=== PATIENT | male | born 1980 | race Two or more races ===

== ENCOUNTER 2018-03-06 22:13 | Emergency (ER) | payer MEDICAID ==
[~2018-03-06] VITALS: Ht 165.1 cm; Wt 70.3 kg
--- NOTE | 2018-03-06 22:30 | NUR ---
MD AT BEDSIDE FOR EVALUATION
--- NOTE | 2018-03-06 22:35 | NUR ---
PT BIBFRIEND. PT C/O FACIAL SWELLING AFTER "POPPING BUBBLE IN MOUTH". PT IS AAOX4. NO ACUTE DISTRESS NOTED. RESPIRATIONS EVEN AND UNLABORED. SKIN WARM AND INTACT. WAITING MD EVALUATION
[2018-03-06] MEDS ORDERED: KETOROLAC TROMETHAMINE INJ 30 MG/ML VIAL ONE (22:45)
[2018-03-06] MEDS ORDERED: methylPREDNISolone SOD SUCC 125 MG/2ML VIAL ONE (22:46)
[2018-03-06 22:57] LABS: BASOPHILS % (AUTO) 0.6 % (0.0-2.0); EOSINOPHILS % (AUTO) 0.9 % (0.0-6.0); HEMATOCRIT 44 % (39-51); HEMOGLOBIN 14.4 g/dL (13.5-17.5); LYMPHOCYTES # (AUTO) 1.3 /CMM (0.8-4.8); LYMPHOCYTES % (AUTO) 19.5 % (20.0-44.0); MEAN CORPUSCULAR HEMOGLOBIN 30 PG (26.0-33.0); MEAN CORPUSCULAR HGB CONC 33 g/dl (31.0-36.0); MEAN CORPUSCULAR VOLUME 90 fL (80-96); MONOCYTES # (AUTO) 0.5 /CMM (0.1-1.30); NEUTROPHILS # (AUTO) 4.8 /CMM (1.8-8.9); PLATELET COUNT (AUTO) 168 /CMM (150-450); RDW COEFFICIENT OF VARIATION 12.8 (11.5-15.0); RED BLOOD CELL COUNT(AUTO) 4.89 MIL/uL (4.5-6.0); WHITE BLOOD COUNT (AUTO) 6.7 K/uL (4.3-11.0)
[2018-03-06] MEDS ORDERED: CLINDAMYCIN 900 MG/6 ML VIAL ONE (22:57)
[2018-03-06 23:05] LABS: CALCIUM, SERUM 8.7 mg/dL (8.5-10.1); CREATININE 0.9 mg/dL (0.6-1.3); POTASSIUM 3.5 mmol/L (3.5-5.1)
[2018-03-06] MEDS: KETOROLAC TROMETHAMINE INJ 30 MG/ML VIAL IV ONE (23:13)
[2018-03-06] MEDS: CLINDAMYCIN 600 MG in IV D5W 100 ML IV ONE (23:13)
[2018-03-06] MEDS: methylPREDNISolone SOD SUCC 125 MG/2ML VIAL IV ONE (23:13)
[2018-03-06] MEDS ORDERED: IOHEXOL-300 100 ML VIAL IV ONE (23:14)
[2018-03-06] MEDS ORDERED: SODIUM BICARBONATE 5 ML VIAL ONE (23:14)
[2018-03-06 23:17] LABS: INR 1.03 (0.87-1.13)
--- NOTE | 2018-03-06 23:19 | NUR ---
PT BROUGHT BY RADIOLOGY FOR CT
--- NOTE | 2018-03-06 23:30 | NUR ---
PT RETURNED FROM CT. RESTING COMFORTABLY IN BED. PT PLACED ON MONITOR. VSS.
--- NOTE | 2018-03-07 00:26 | NUR ---
[facility]2 [facility]
--- NOTE | 2018-03-07 00:42 | NUR ---
Note yolanda in ED - 03/07/18 at 0049 by LETTY Patient discharged to home in stable condition. Written and verbal after care instructions given. Patient verbalizes understanding of instruction. IV removed. Catheter intact and site benign. Pressure and 4x4 applied to site. No bleeding noted. AMBULATED WITH STEADY GAIT.
--- NOTE | 2018-03-07 00:42 | NUR ---
Patient discharged to home in stable condition. Written and verbal after care instructions given. Patient verbalizes understanding of instruction. IV removed. Catheter intact and site benign. Pressure and 4x4 applied to site. No bleeding noted. AMBULATED WITH STEADY GAIT. Patient does not wish to proceed with medical care recommended by Dr. DONOVAN. Patient given information related to possible complications, up to and including , which could occur as a result of leaving the hospital at this time. Patient verbalizes understanding of risks involved due to leaving against medical advice. Patient has signed AMA form.
[2018-03-07 00:51] VITALS: BP 118/72
== END 2018-03-07 00:53 | disposition left against medical advice (07) ==
LOC: ER 22:15
DX: L03.211 Cellulitis of face (principal); F17.200 Nicotine dependence, unspecified, uncomplicated
CPT/HCPCS: 36415; 70487-TC; 80048-TC; 85025-TC; 85730-TC; A4606; J1885; J2930; J3490; J7060; Q9967; Z7610